=== PATIENT | female | born 1985 | race Caucasian/White ===

== ENCOUNTER → 2016-11-29 | Outpatient (REF) ==
[~2016-11-29] MED LIST: CONCERTA54 MG PO; PREDNISONE20 MG PO
== END ==
LOC: WSOH 14:05
DX: Z02.1 Encounter for pre-employment examination (principal)

== ENCOUNTER → 2016-11-29 | Outpatient (REF) | LOC: WSOH 14:09 | DX: Z02.1 Encounter for pre-employment examination (principal) ==

== ENCOUNTER → 2016-12-02 | Outpatient (REF) | LOC: WSOH 15:06 | DX: Z02.89 Encounter for other administrative examinations (principal) ==

== ENCOUNTER → 2016-12-06 | Outpatient (REF) | LOC: WSOH 09:53 | DX: Z00.00 Encounter for general adult medical examination without abnormal findings (principal) ==

== ENCOUNTER 2017-01-23 08:09 | Emergency (ER) | payer OTHER ==
[~2017-01-23] VITALS: Ht 154.9 cm; Wt 63.6 kg
[2017-01-23 08:23] VITALS: BP 119/87; PULSE 85; TEMP 98.3
[2017-01-23] MEDS ORDERED: CONCERTA54 MG PO (08:28)
[2017-01-23] MEDS ORDERED: PREDNISONE20 MG PO (09:18)
== END 2017-01-23 09:47 | disposition home or self-care (01) ==
LOC: COL.ER 08:09
DX: T63.441A Toxic effect of venom of bees, accidental (unintentional), initial encounter (principal); L50.8 Other urticaria
CPT/HCPCS: J2930

== ENCOUNTER → 2017-10-11 | Outpatient (CLI) | payer BC ==
[2017-10-11 10:52] LABS: BASO # 0.1 (0.0-0.2); BASO % 0.8 % (0.0-2.0); EOS # 0.3 (0.0-0.7); EOS % 3.3 % (0-4.0); GRAN # 5.4 (1.4-6.5); HEMATOCRIT 43.2 % (37.0-47.0); HEMOGLOBIN 14.3 g/dl (12.5-16.0); LYMPH % 32.4 % (20.0-51.0); MEAN CELL VOLUME 85 fl (80.0-100.0); MEAN CORPUSCULAR HEMOGLOBIN 28 pg (27.0-31.0); MEAN CORPUSCULAR HGB CONC 33 g/dl (33.0-37.0); MEAN PLATELET VOLUME 10.8 fl (7.4-10.4); MONO # 0.5 (0.1-0.6); MONO % 5.2 % (1.7-9.3); PLATELET COUNT 321 K/mm3 (130-400); RED BLOOD COUNT 5.06 M/mm3 (4.10-5.30); REDCELL DISTRIBUTION WIDTH-CV 12.8 % (11.5-14.5)
[2017-10-11 11:02] LABS: ALBUMIN 4.3 gm/dL (3.5-5.0); BILIRUBIN,TOTAL 0.4 mg/dL (0.0-1.0); CALCIUM 9.4 mg/dL (8.4-10.2); CHOLESTEROL RISK RATIO 3.7; CREATININE, serum 0.64 mg/dL (0.52-1.25); POTASSIUM 4.4 mmol/L (3.4-5.0); TOTAL PROTEIN 8.6 gm/dL (6.4-8.2)
[2017-10-11 11:32] LABS: TSH w REFLEX 1.45 uIU/mL (0.465-4.680)
== END ==
LOC: COL.LAB 09:46
PROVIDERS: Family Medicine
DX: R45.4 Irritability and anger (principal); Z13.1 Encounter for screening for diabetes mellitus; Z13.220 Encounter for screening for lipoid disorders

== ENCOUNTER → 2019-07-25 | Outpatient (CLI) | payer OTHER | LOC: MC.RAD 10:59 | DX: N63.10 Unspecified lump in the right breast, unspecified quadrant (principal) ==

== ENCOUNTER → 2020-02-03 | Outpatient (CLI) | payer OTHER | LOC: MC.RAD 10:30 | DX: N63.12 Unspecified lump in the right breast, upper inner quadrant (principal) ==